=== PATIENT | female | born 1985 | race Caucasian/White ===

== ENCOUNTER 2017-04-23 17:30 | Inpatient (IN) | payer MEDICAID ==
[~2017-04-23 17:30] MED LIST: OXYTOCIN 30 UNITS/LR 500 ML BAG IV
[2017-04-23] MEDS: LACTATED RINGER'S 1,000 ML IV (20:30)
[2017-04-23] MEDS ORDERED: CARBOPROST 250 MCG INJ IM (20:30)
[2017-04-23] MEDS ORDERED: MISOPROSTOL 200 MCG TAB PR (20:30)
[2017-04-23] MEDS ORDERED: OXYTOCIN 30 UNITS/LR 500 ML IV (20:30)
[2017-04-23 20:34] LABS: WHITE BLOOD COUNT 4.7 10^3/ul (4.8-10.8)
[2017-04-23 20:34] LABS: ABNORMAL IP MESSAGE 1; ADD MAN DIFF? NO; BASOPHILS % 0.2 % (0.0-2.0); EOSINOPHILS # 0.1 10^3/ul (0.0-0.5); EOSINOPHILS % 1.7 % (0.0-7.0); HEMATOCRIT 29.4 % (37.0-47.0); HEMOGLOBIN 8.8 g/dl (12.0-16.0); LYMPHOCYTES # 1.3 10^3/ul (0.8-2.9); LYMPHOCYTES % 27.2 % (15.0-51.0); MEAN CORPUSCULAR HEMOGLOBIN 20.6 pg (29.0-33.0); MEAN CORPUSCULAR HGB CONC 29.9 g/dl (32.0-37.0); MEAN CORPUSCULAR VOLUME 68.7 fl (82.0-101.0); MONOCYTE # 0.3 10^3/ul (0.3-0.9); NEUTROPHILS % 64.3 % (39.0-77.0); PLATELET COUNT 144 10^3/UL (140-415); RED BLOOD COUNT 4.28 10^6/ul (4.20-5.40); RED CELL DISTRIBUTION WIDTH 19.9 % (11.5-14.5)
[2017-04-23] MEDS ORDERED: ONDANSETRON 4 MG INJ (20:57)
[2017-04-23] MEDS ORDERED: CITRIC ACID/SODIUM CITRATE 15 ML CUP (20:57)
[2017-04-23 21:00] LABS: POSITIVE DIFF @See below
[2017-04-23] MEDS: ONDANSETRON 4 MG INJ IV (21:00)
[2017-04-23] MEDS: CITRIC ACID/SODIUM CITRATE 15 ML CUP PO (21:00)
[2017-04-23 21:19] LABS: INR 0.91; PARTIAL THROMBOPLASTIN TIME 28.4 Sec (25.0-35.0); PROTIME 12.3 Sec (11.9-14.9)
[2017-04-23] MEDS ORDERED: ONDANSETRON 4 MG INJ IV ×2 (21:30)
[2017-04-23] MEDS ORDERED: HYDROmorphONE (0.2 MG/ML) 10ML SYG IV (21:30)
[2017-04-23] MEDS ORDERED: METOCLOPRAMIDE 10 MG INJ IV (21:30)
[2017-04-23] MEDS ORDERED: KETOROLAC 30 MG INJ IV (21:30)
[2017-04-23] MEDS ORDERED: DIPHENHYDRAMINE 50 MG INJ IV (21:30)
[2017-04-23] MEDS ORDERED: HYDROmorphONE 0.5 MG/0.5 ML SYG IV ×2 (21:30)
[2017-04-23] MEDS ORDERED: NALOXONE (0.4 MG/ML) INJ IV (21:30)
[2017-04-23] MEDS ORDERED: FENTAnyl 50 MCG/ML VIAL IV ×2 (21:30)
[2017-04-23 21:31] LABS: HEPATITIS B SURFACE ANTIGEN NEGATIVE (NEGATIVE)
[2017-04-23] MEDS ORDERED: morphine SULFATE/PF (10 MG/10 ML) INJ (21:32)
[2017-04-23] MEDS ORDERED: PHENYLephrine (100 MCG/ML) 5ML SYG ×3 (21:40→22:22)
[2017-04-23] MEDS: CLINDAMYCIN 900 MG/D5W (PMX) 50 ML IV (23:18)
[2017-04-23] MEDS: CEFAZOLIN 2 GM/50 ML (PMX) 50 ML IV (23:18)
[2017-04-23] MEDS: OXYTOCIN 30 UNITS/LR 500 ML IV (23:19)
[2017-04-23] MEDS: KETOROLAC 30 MG INJ IV (23:22)
[2017-04-24] MEDS: DIPHENHYDRAMINE 50 MG INJ IV (00:39)
[2017-04-24] MEDS: METHYLERGONOVINE 0.2 MG INJ IM (01:07)
[2017-04-24] MEDS: OXYTOCIN 30 UNITS/LR 500 ML IV (01:09)
[2017-04-24] MEDS: HYDROmorphONE (0.2 MG/ML) 10ML SYG IV (01:38)
[2017-04-24] MEDS ORDERED: ONDANSETRON 4 MG INJ IV (02:30)
[2017-04-24] MEDS ORDERED: OXYTOCIN 30 UNITS/LR 500 ML IV (02:30)
[2017-04-24] MEDS ORDERED: DIPHENHYDRAMINE 50 MG INJ IV (02:30)
[2017-04-24] MEDS ORDERED: ZOLPIDEM 5 MG TAB PO (02:30)
[2017-04-24] MEDS ORDERED: MISOPROSTOL 200 MCG TAB PR (02:30)
[2017-04-24] MEDS ORDERED: LANOLIN 7 GM TUBE TOP (02:30)
[2017-04-24] MEDS ORDERED: METHYLERGONOVINE 0.2 MG INJ IM (02:30)
[2017-04-24] MEDS ORDERED: CARBOPROST 250 MCG INJ IM (02:30)
[2017-04-24] MEDS: KETOROLAC 30 MG INJ IV ×2 (05:24→18:42)
[2017-04-24] MEDS: LACTATED RINGER'S 1,000 ML IV ×3 (09:00→18:41)
[2017-04-24] MEDS: SENNA/DOCUSATE NA (8.6MG/50MG) TAB PO ×2 (09:08→21:20)
[2017-04-24 15:34] LABS: RAPID PLASMA REAGIN NONREACTIVE (NR)
[2017-04-24] MEDS: IBUPROFEN 600 MG TAB PO (23:34)
[2017-04-25] MEDS: LACTATED RINGER'S 1,000 ML IV (02:04)
[2017-04-25] MEDS: OXYCODONE/ACETAMINOPHEN (5/325) TAB PO ×3 (03:18→21:08)
[2017-04-25] MEDS: IBUPROFEN 600 MG TAB PO ×3 (05:36→17:56)
[2017-04-25 08:38] LABS: ADD MAN DIFF? NO
[2017-04-25 08:48] LABS: WHITE BLOOD COUNT 5.7 10^3/ul (4.8-10.8)
[2017-04-25 08:48] LABS: ABNORMAL IP MESSAGE 1; BASOPHILS % 0.2 % (0.0-2.0); EOSINOPHILS # 0.1 10^3/ul (0.0-0.5); EOSINOPHILS % 0.9 % (0.0-7.0); HEMATOCRIT 23.8 % (37.0-47.0); HEMOGLOBIN 7.2 g/dl (12.0-16.0); LYMPHOCYTES # 0.8 10^3/ul (0.8-2.9); LYMPHOCYTES % 14.2 % (15.0-51.0); MEAN CORPUSCULAR HEMOGLOBIN 20.9 pg (29.0-33.0); MEAN CORPUSCULAR HGB CONC 30.3 g/dl (32.0-37.0); MONOCYTE # 0.3 10^3/ul (0.3-0.9); MONOCYTES % 5.6 % (0.0-11.0); NEUTROPHIL # 4.5 10^3/ul (1.6-7.5); NEUTROPHILS % 78.6 % (39.0-77.0); PLATELET COUNT 139 10^3/UL (140-415); RED BLOOD COUNT 3.45 10^6/ul (4.20-5.40); RED CELL DISTRIBUTION WIDTH 19.9 % (11.5-14.5)
[2017-04-25 09:00] LABS: POSITIVE DIFF @See below
[2017-04-25] MEDS: SENNA/DOCUSATE NA (8.6MG/50MG) TAB PO ×2 (09:31→20:59)
[2017-04-26] MEDS: IBUPROFEN 600 MG TAB PO ×3 (00:15→12:23)
[2017-04-26] MEDS: SENNA/DOCUSATE NA (8.6MG/50MG) TAB PO (09:10)
[2017-04-27] MEDS ORDERED: DIPHTH/TET/ACEL PERTUSS (ADULT) 0.5 ML VIAL IM* (09:00)
== END 2017-04-26 13:05 | disposition home or self-care (01) | DRG 766 ==
LOC: OBT 17:30 → PP1 04-24 02:28 → L-D 17:32 → OBT 19:51 → L-D 19:25
PROVIDERS: Obstetrics & Gynecology
PROC: 10D00Z1 Extraction of Products of Conception, Low, Open Approach (ICD-10-PCS; principal; 2017-04-24)
PROC: 0UB70ZZ Excision of Bilateral Fallopian Tubes, Open Approach (ICD-10-PCS; 2017-04-24)
DX: O34.211 Maternal care for low transverse scar from previous cesarean delivery (principal); O99.824 Streptococcus B carrier state complicating childbirth; Z37.0 Single live birth; Z3A.38 38 weeks gestation of pregnancy; Z30.2 Encounter for sterilization
CPT/HCPCS: 76818; 85025; 85610; 85730; 86592; 86850; 86900; 86901; 86920; 87340; 88302; 88305; 94760; 99464